=== PATIENT | female | born 1945 | race Caucasian/White ===

== ENCOUNTER → 2019-12-31 | Outpatient (CLI) | payer MEDICARE ==
[~2019-12-31] MED LIST: Cholesterol PO
[2019-12-31 12:25] LABS: BASOPHILS # (AUTO) 0.04 x10^3/uL (0-0.1); BASOPHILS % (AUTO) 0 % (0-1); EOSINOPHILS # (AUTO) 0.12 x10^3/uL (0-0.4); EOSINOPHILS % (AUTO) 1 % (1-7); LYMPHOCYTES # (AUTO) 3.13 x10^3/uL (1-3.4); LYMPHOCYTES % (AUTO) 28 % (22-44); MD NO; MEAN CORPUSCULAR HEMOGLOBIN 31.8 pg (27.0-34.8); MEAN CORPUSCULAR HGB CONC 33.3 g/dL (32.4-35.8); MEAN CORPUSCULAR VOLUME 95.4 fL (80-100); MEAN PLATELET VOLUME 8.4 fL (7.4-10.4); MONOCYTES # (AUTO) 0.47 x10^3/uL (0.2-0.8); MONOCYTES % (AUTO) 4 % (2-9); NEUTROPHILS # (AUTO) 7.45 x10^3/uL (1.8-6.8); NEUTROPHILS % (AUTO) 66 % (42-75); PLATELET COUNT 285 x10^3/uL (130-400); RED BLOOD COUNT 5.52 x10^6/uL (3.82-5.3)
[2019-12-31 12:33] LABS: INTERNATIONAL NORMALIZED RATIO 0.96 (0.93-1.1); PROTHROMBIN TIME 10.2 Seconds (9.6-11.5)
[2019-12-31 12:34] LABS: ALANINE AMINOTRANSFERASE 27 U/L (12-78); ALBUMIN 3.7 g/dL (3.4-5.0); ANION GAP 4 mmol/L (5-15); CALCIUM 9.2 mg/dL (8.5-10.1); CHLORIDE 110 mmol/L (98-107)
[2019-12-31 12:37] LABS: ALKALINE PHOSPHATASE 65 U/L (45-117); BILIRUBIN,TOTAL 0.5 mg/dL (0.2-1.0); CREATININE 1.23 mg/dL (0.55-1.02); TOTAL PROTEIN 7.7 g/dL (6.4-8.2)
== END | disposition home or self-care (01) ==
LOC: STAR 10:40
PROVIDERS: ATTEND Specialist
DX: Z01.818 Encounter for other preprocedural examination (principal); R19.09 Other intra-abdominal and pelvic swelling, mass and lump; I70.0 Atherosclerosis of aorta; R94.31 Abnormal electrocardiogram [ECG] [EKG]
CPT/HCPCS: 36415; 71046; 80053; 85025; 85610; 85730; 86304; 93005

== ENCOUNTER 2020-06-05 08:00 | Outpatient (CLI) | payer MEDICARE ==
[2020-06-05] MEDS ORDERED: CYAN-27 PO (13:52)
[2020-06-05] MEDS ORDERED: VITA100020 PO (13:52)
[2020-06-05] MEDS ORDERED: MULT-123 PO (13:52)
[2020-06-05] MEDS ORDERED: ASCO-96 PO (13:52)
== END 2020-06-05 23:59 | disposition home or self-care (01) ==
LOC: STAR 08:00
PROVIDERS: ATTEND Surgery
DX: Z01.818 Encounter for other preprocedural examination (principal); Z20.828 Contact with and (suspected) exposure to other viral communicable diseases; K43.2 Incisional hernia without obstruction or gangrene
CPT/HCPCS: 36415; 87635; 93005

== ENCOUNTER 2020-07-18 07:45 | Day surgery (SDC) | payer MEDICARE ==
[~2020-07-18] VITALS: Ht 154.9 cm; Wt 66.6 kg
[~2020-07-18 07:45] MED LIST changes: +ASCO-96 PO; +ATOR40TA78 PO; +BUPIVACAINE/PF 0.5% ONE; +CYAN-27 PO; +EPINEPHRINE 1 MG/ML, 1ML ONE; +MULT-123 PO; +VITA100020 PO; +vitamin B6 PO
[2020-07-18] MEDS ORDERED: CHLORHEXIDINE 15 ML UDC MM STA (08:37)
[2020-07-18] MEDS ORDERED: LACTATED RINGERS 1,000 ML IV SCH (08:37)
[2020-07-18 08:39] VITALS: BP 149/97
[2020-07-18] MEDS ORDERED: SCOPOLAMINE 1MG PATCH TD STA (09:51)
[2020-07-18] MEDS ORDERED: SCOPOLAMINE 1MG PATCH TD ONE ×2 (09:53→10:30)
[2020-07-18] MEDS ORDERED: FENTANYL PF 100 MCG/2ML ONE ×3 (09:54→13:09)
[2020-07-18] MEDS ORDERED: MIDAZOLAM 1 MG/ML, 2ML ONE (09:54)
[2020-07-18] MEDS ORDERED: EPHEDRINE 50 MG/ML, 1ML ONE (10:01)
[2020-07-18] MEDS ORDERED: PROMETHAZINE 25 MG/ML, 1ML IVPush PRN (11:00)
[2020-07-18] MEDS ORDERED: KETOROLAC 30 MG/1 ML IVPush PRN (11:00)
[2020-07-18] MEDS ORDERED: HYDROcodone/APAP 7.5-325MG/15ML UDC PO PRN (11:00)
[2020-07-18] MEDS ORDERED: OXYcodone 5 MG/5 ML ORAL.SOL UDC PO PRN (11:00)
[2020-07-18] MEDS ORDERED: NEOSTIGMINE 1 MG/ML, 10ML ONE (12:21)
[2020-07-18] MEDS ORDERED: ONDANSETRON 2MG/ML, 2ML ONE (12:21)
[2020-07-18] MEDS ORDERED: PROPOFOL 10 MG/ML, 20ML ONE (12:21)
[2020-07-18] MEDS ORDERED: SUCCINYLCHOLINE 20 MG/ML, 10ML ONE (12:21)
[2020-07-18] MEDS ORDERED: DEXAMETHASONE 4 MG/ML, 1ML ONE (12:21)
[2020-07-18] MEDS ORDERED: ROCURONIUM 10MG/ML,5ML ONE (12:21)
[2020-07-18] MEDS ORDERED: CEFAZOLIN 1,000 MG ONE (12:21)
[2020-07-18] MEDS ORDERED: GLYCOPYRROLATE 0.2MG/1ML, 5ML ONE (12:21)
[2020-07-18] MEDS: FENTANYL PF 100 MCG/2ML IV PRN ×2 (13:10→13:20)
[2020-07-18] MEDS ORDERED: OXYcodone 5 MG/5 ML ORAL.SOL UDC ONE (13:10)
[2020-07-18] MEDS ORDERED: HYDROmorphone 2 MG/ML, 1ML ONE (13:37)
[2020-07-18] MEDS: HYDROmorphone 1 MG/ML, 1ML INJ IVPush PRN ×3 (13:39→15:55)
[2020-07-18] MEDS ORDERED: METHOCARBAMOL 1000MG/10 ML IVPB ONE (14:00)
[2020-07-18] MEDS ORDERED: METHOCARBAMOL 1,000 MG in DEXTROSE 5% 100 ML IV ONE (14:00)
== END 2020-07-18 18:15 | disposition home or self-care (01) ==
LOC: OUT 07:45
PROVIDERS: ATTEND Surgery
DX: K43.2 Incisional hernia without obstruction or gangrene (principal); K66.0 Peritoneal adhesions (postprocedural) (postinfection); Z79.899 Other long term (current) drug therapy; Z88.5 Allergy status to narcotic agent; Z88.8 Allergy status to other drugs, medicaments and biological substances
CPT/HCPCS: 49654; 87635; 93005; C1781; J0171; J0330; J0690; J1100; J1170; J1885; J2250; J2405; J2704; J2710; J2800; J3010; J7120